=== PATIENT | male | born 1975 | race Caucasian/White ===

== ENCOUNTER 2020-05-10 14:17 | Emergency (ER) | payer SELFPAY ==
[~2020-05-10] VITALS: Ht 172.7 cm; Wt 79.5 kg
[2020-05-10 14:21] VITALS: BP 154/72
--- NOTE | 2020-05-10 14:42 | ED Upper Extremity ---
General Chief Complaint: Upper Extremity Stated Complaint: RIGHT SHOULDER PAIN History of Present Illness Date Seen by Provider: May 10, 2020 Time Seen by Provider: 14:33 Initial Comments 44-year-old male presents with right shoulder pain for the past 3 weeks, gradually getting worse. Has noticed a lump on her shoulder that is moderately tender to touch. Has been having some difficulty lifting and grasping due to the pain and occasionally has dropped things. 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 Denies known injury or fall prior to onset. Denies any neck pain or extremity paresthesia or weakness. Allergies and Home Medications Allergies Coded Allergies: Penicillins (Verified Allergy, Unknown, 05/10/20) Home Medications Ibuprofen 800 Mg Tablet, 800 MG PO Q8H PRN for PAIN Prescribed by: JOLEEN BACA on 05/10/20 1507 Patient Home Medication List Home Medication List Reviewed: Yes Review of Systems Constitutional: no symptoms reported; No fever, No malaise, No weakness EENTM: no symptoms reported Respiratory: No cough, No short of breath Cardiovascular: No chest pain, No edema, No palpitations, No syncope Gastrointestinal: No abdominal pain, No nausea, No vomiting Musculoskeletal: No back pain; joint pain (R shoulder), joint swelling; No neck pain Skin: No change in color, No lesions, No lumps, No rash Psychiatric/Neurological: Denies Numbness, Denies Paresthesia, Denies Tremors, Denies Weakness Past Vkpmngy-Mlvuic-Jjcmkp Hx Past Med/Social Hx: Reviewed Nursing Past Med/Soc Hx Patient Social History Alcohol Use: Denies Use Smoking Status: Current Everyday Smoker 2nd Hand Smoke Exposure: No Recent Hopitalizations: No Seasonal Allergies Seasonal Allergies: No Past Medical History Surgeries: Yes (Multiple orthopedic surgeries on bilater lower extremities) Orthopedic Respiratory: No Cardiac: No Neurological: No Genitourinary: No Gastrointestinal: No Musculoskeletal: No Endocrine: No HEENT: No Cancer: No Psychosocial: No Blood Disorders: No Physical Exam Vital Signs Vital Signs - First Documented 05/10/20 14:21 Temp 36.8 Pulse 98 Resp 16 B/P (MAP) 154/72 (99) Pulse Ox 98 O2 Delivery Room Air Capillary Refill : Height, Weight, BMI Height: '" Weight: lbs. oz. kg; BMI Method: General Appearance: WD/WN, no apparent distress Neck: non-tender, full range of motion, supple, normal inspection; No tender lateral, No tender midline Back: normal inspection, no CVA tenderness, no vertebral tenderness Shoulder: normal ROM (but uncomfortable), asymmetry (AC prominent on R compared to left); No deformity, No ecchymosis; pain, soft tissue tenderness, swelling (AC joint superiorly) Neurologic/Tendon: normal sensation, normal motor functions Progress/Results/Core Measures Results/Orders My Orders Orders - JOLEEN BACA DO Acromio-Clavicular Joints (05/10/20 14:35) Vital Signs/I&O 05/10/20 14:21 Temp 36.8 Pulse 98 Resp 16 B/P (MAP) 154/72 (99) Pulse Ox 98 O2 Delivery Room Air Diagnostic Imaging Diagonstic Imaging: Xray Comments normal appearing AC joints with and without weights. No evidence of separation. + STS Right AC joint apparent. Reviewed: Reviewed by Me Departure Impression Primary Impression: Strain of AC joint Qualified Codes: S46.911A - Strain of unspecified muscle, fascia and tendon at shoulder and upper arm level, right arm, initial encounter Disposition: HOME, SELF-CARE Condition: Stable Departure-Patient Inst. Decision time for Depature: 15:08 Referrals: NO,LOCAL PHYSICIAN (PCP) Primary Care Physician DENNY TRUONG MD Patient Instructions: How to Use a Shoulder Sling, Shoulder Sprain (DC) Add. Discharge Instructions: You have an AC-joint (Acromial-clavicular) strain. There is no evidence of a tear at this point....however, you should protect it and allow time to heal before returning to your full activities. see Dr Truong in 2 weeks for any further questions or concerns All discharge instructions reviewed with patient and/or family. Voiced understanding. Scripts Ibuprofen (Ibuprofen) 800 Mg Tablet 800 MG PO Q8H PRN for PAIN, #30 TAB 0 Refills Prov: JOLEEN BACA DO 05/10/20 JOLEEN BACA DO May 10, 2020 14:42
[2020-05-10] MEDS ORDERED: IBUP-1780 PO (15:07)
--- NOTE | 2020-05-10 15:47 | Diagnostic Imaging Report ---
INDICATION: Right shoulder pain. COMPARISON: None FINDINGS: Multiple radiographic views of the bilateral clavicles were obtained with and without weight loading. AC joints are symmetric and maintained both with and without weight loading. Clavicles are intact. There is no evidence of acute fracture. No unexpected radiopaque foreign bodies are seen. Included portions of the lungs are clear. IMPRESSION: 1. Unremarkable radiographic exam of the clavicles and AC joints. Dictated by: Dictated on workstation # [id number]
== END 2020-05-10 15:10 | disposition home or self-care (01) ==
LOC: ER FS 14:20
DX: S46.911A Strain of unspecified muscle, fascia and tendon at shoulder and upper arm level, right arm, initial encounter (principal); F17.210 Nicotine dependence, cigarettes, uncomplicated; Z88.0 Allergy status to penicillin; X58.XXXA Exposure to other specified factors, initial encounter
CPT/HCPCS: 73050; 99283; A4565

== ENCOUNTER 2020-06-21 17:58 | Emergency (ER) | payer SELFPAY ==
[~2020-06-21] VITALS: Ht 170.1 cm; Wt 75.8 kg
[~2020-06-21 17:58] MED LIST: IBUP-1780 PO
[2020-06-21] MEDS ORDERED: LIDOCAINE 1% INJ 20 ML 20 ML VIAL ONE (18:23)
[2020-06-21] MEDS ORDERED: LIDOCAINE 1% INJ 20 ML 20 ML VIAL INJ ONE (18:30)
[2020-06-21 19:05] VITALS: BP 149/85
--- NOTE | 2020-06-21 19:09 | ED Upper Extremity ---
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 Injury occurred just prior to ED arrival. Patient has a 6 cm deep full-thickness laceration with exposed fat through this region. Wound is bleeding and grossly contaminated. There is no bony tenderness deformity or vessel injury. Tetanus is up-to-date. Onset: just prior to arrival Pain/Injury Location: left wrist Method of Injury: incised Modifying Factors: Improves With Other Allergies and Home Medications Allergies Coded Allergies: Penicillins (Verified Allergy, Unknown, 05/10/20) Home Medications Ibuprofen 800 Mg Tablet, 800 MG PO Q8H PRN for PAIN Prescribed by: JOLEEN BACA on 05/10/20 1507 Patient Home Medication List Home Medication List Reviewed: Yes Review of Systems Constitutional: no symptoms reported EENTM: no symptoms reported Respiratory: no symptoms reported Gastrointestinal: no symptoms reported Genitourinary: no symptoms reported Musculoskeletal: see HPI Skin: see HPI Psychiatric/Neurological: No Symptoms Reported Past Kwnjsam-Tzzrxk-Mqlloz Hx Past Med/Social Hx: Reviewed Nursing Past Med/Soc Hx Patient Social History 2nd Hand Smoke Exposure: No Recent Hopitalizations: No Seasonal Allergies Seasonal Allergies: No Past Medical History Surgeries: Yes (Multiple orthopedic surgeries on bilater lower extremities) Orthopedic Respiratory: No Cardiac: No Neurological: No Genitourinary: No Gastrointestinal: No Musculoskeletal: No Endocrine: No HEENT: No Cancer: No Psychosocial: No Blood Disorders: No Physical Exam Vital Signs Capillary Refill : Height, Weight, BMI Height: '" Weight: lbs. oz. kg; 26.00 BMI Method: General Appearance: moderate distress HEENT: PERRL/EOMI Neck: full range of motion Cardiovascular: regular rate, rhythm Respiratory: lungs clear, normal breath sounds Hand: laceration (6 cm full-thickness horizontal laceration to the left hypothenar surface penetrating muscle fascia. Contaminated, bleeding controlled, no bony or vascular injury. No loss of function.), soft tissue tenderness Neurologic/Tendon: normal sensation, normal motor functions Neurologic/Psychiatric: no motor/sensory deficits Procedures/Interventions Wound Location: Upper Extremities Other Wound Location 6 cm Wound Explored: contaminated Irrigated w/ Saline (ccs): 1000 (Tap water copious) Betadine Prep?: No Anesthesia: 1% Lidocaine Volume Anesthetic (ccs): 7 Suture: Ethlion Suture Size: 5-0 Number of Sutures: 10 (Running locked) Layer Closure?: 1 Sterile Dressing Applied?: Yes Progress Patient tolerated procedure well. Tetanus up-to-date. Routine wound care instructions return precautions reviewed. Progress/Results/Core Measures Results/Orders My Orders Orders - FAVIO BARBER DO Lidocaine 1% Inj 20 Ml (Xylocaine 1% Inj (06/21/20 18:30) Lidocaine 1% Inj 20 Ml (Xylocaine 1% Inj (06/21/20 18:23) Medications Given in ED Current Medications Medications Dose Ordered Sig/Enid Route Start Time Stop Time Status Last Admin Dose Admin Lidocaine HCl 20 ml ONCE ONCE INJ 06/21/20 18:30 06/21/20 18:31 DC 06/21/20 18:45 20 ML Departure Communication (Admissions) Left hand laceration. Wound cleaned and closed. Tetanus is already up-to-date. Strict hand hygiene and wound care instructions reviewed. Return precautions reviewed. Patient verbalizes understanding agreement discharge instructions prior to departure. Sutures to be removed in 10 to 12 days Impression Primary Impression: Laceration of left hand Disposition: HOME, SELF-CARE Condition: Stable Departure-Patient Inst. Decision time for Depature: 19:11 Referrals: NO,LOCAL PHYSICIAN (PCP/Family) Primary Care Physician Patient Instructions: Laceration Repair With Stitches ED Add. Discharge Instructions: Please keep wound clean dry and covered. Take ibuprofen for pain and hydrocodone as needed for additional relief. Complete full course of antibiotics. Follow-up with your PCP in 10 to 12 days or return to the ED for suture removal. Return sooner if signs of infection. All discharge instructions reviewed with patient and/or family. Voiced understanding. Scripts Hydrocodone/Acetaminophen (Hydrocodone-Acetamin 5-325 mg) 1 Each Tablet 1 TAB PO Q4H PRN for PAIN-MODERATE (5-7), #10 TAB Prov: FAVIO BARBER DO 06/21/20 Cephalexin (Cephalexin) 500 Mg Tablet 500 MG PO TID, #21 TAB Prov: FAVIO BARBER DO 06/21/20 FAVIO BARBER DO Jun 21, 2020 19:09
[2020-06-21] MEDS ORDERED: ACHD5005 PO (19:12)
[2020-06-21] MEDS ORDERED: CEPH500T PO (19:12)
== END 2020-06-21 19:15 | disposition home or self-care (01) ==
LOC: EDUNIT# 17:58 → ER FS 17:59
DX: S61.012A Laceration without foreign body of left thumb without damage to nail, initial encounter (principal); Z88.0 Allergy status to penicillin; W31.1XXA Contact with metalworking machines, initial encounter
CPT/HCPCS: 12002

== ENCOUNTER 2020-10-31 22:00 | Emergency (ER) | payer SELFPAY ==
[~2020-10-31] VITALS: Ht 170 cm; Wt 74.8 kg
[~2020-10-31 22:00] MED LIST changes: +ACHD5005 PO; +CEPH500T PO
[2020-10-31] MEDS ORDERED: PRD20T PO (22:22)
[2020-10-31] MEDS ORDERED: TRIA15CR TP (22:22)
--- NOTE | 2020-10-31 22:23 | ED Integumentary General ---
General Stated Complaint: ALL OVER RASH Source: patient Exam Limitations: no limitations History of Present Illness Date Seen by Provider: Oct 31, 2020 Time Seen by Provider: 22:18 Initial Comments 44 old male presents with a rash that he had since the day after his second Covid shot about 1 month ago. Primarily of his lower extremities, also on his trunk of his chest and abdomen. It is itchy and dry. Did see his PCP, Dr. Chavarria who started on hydroxyzine and fluconazole. Also has a lesion in his right groin. Patient does get in his hot tub nightly. No other concerns. Allergies and Home Medications Allergies Coded Allergies: Penicillins (Verified Allergy, Unknown, 05/10/20) Home Medications Cephalexin 500 Mg Tablet, 500 MG PO TID Prescribed by: FAVIO BARBER on 06/21/201911 Hydrocodone/Acetaminophen 1 Each Tablet, 1 TAB PO Q4H PRN for PAIN-MODERATE (5- 7) Prescribed by: FAVIO BARBER on 06/21/201911 Ibuprofen 800 Mg Tablet, 800 MG PO Q8H PRN for PAIN Prescribed by: JOLEEN BACA on 05/10/20 1507 Prednisone 20 Mg Tab, 40 MG PO DAILY 3 po daily for 4 days, 2 po daily for 5 days, 1 po daily for 5 days Prescribed by: JOLEEN BACA on 10/31/202221 Triamcinolone Acetonide 15 Gm Cream..g., 30 GM TP BID Prescribed by: JOLEEN BACA on 10/31/202221 Patient Home Medication List Home Medication List Reviewed: Yes Review of Systems Review of Systems Constitutional: No fever, No malaise, No weakness EENTM: no symptoms reported Respiratory: No cough, No short of breath Cardiovascular: No chest pain, No edema, No palpitations Gastrointestinal: No abdominal pain, No nausea, No vomiting Musculoskeletal: No back pain, No joint pain Skin: see HPI, change in color, dryness, lesions; No lumps; pruritus, rash Past Wpnvyby-Phslmd-Dhelsr Hx Patient Social History Tobacco Use?: No Immunizations Up To Date Tetanus Booster (TDap): Less than 5yrs Seasonal Allergies Seasonal Allergies: No Past Medical History Surgeries: Yes (Multiple orthopedic surgeries on bilater lower extremities) Orthopedic Respiratory: No Cardiac: No Neurological: No Genitourinary: No Gastrointestinal: No Musculoskeletal: No Endocrine: No HEENT: No Cancer: No Psychosocial: No Integumentary: No Blood Disorders: No Physical Exam Vital Signs Vital Signs - First Documented 10/31/20 22:05 Temp 36.7 Pulse 105 Resp 24 B/P (MAP) 147/85 (105) Pulse Ox 96 Capillary Refill : General Appearance: WD/WN, no apparent distress HEENT: PERRL/EOMI, normal ENT inspection Neck: non-tender, supple Skin: rash (assymmetric erythematous rash w multiple appearances: 1) LLE- erythematous macules and petechia of ant leg, erythematous oval lesions in parch thigh. 2) trunk w erythematous tiny papules 3) Right inguinal oval lesion w raised erythematous scaly border and central clearing c/w tinea lesion. ) Procedures/Interventions Suture Size: 5-0 Progress/Results/Core Measures Results/Orders Vital Signs/I&O 10/31/20 22:05 Temp 36.7 Pulse 105 Resp 24 B/P (MAP) 147/85 (105) Pulse Ox 96 Progress Progress Note : Progress Note unusual "rash" present for about a month pt says started 2 days after 2nd covid shot- differing morphology of different areas. some linear lines, possibly dermatographism? trial of steroids and advised f/u if not improving Departure Impression Primary Impression: Dermatitis Additional Impression: Candidiasis of unspecified site Disposition: 01 HOME, SELF-CARE Condition: Stable Departure-Patient Inst. Decision time for Depature: 22:19 Referrals: STEFAN CHAVARRIA MD (PCP) Primary Care Physician NO,LOCAL PHYSICIAN (Family) Primary Care Physician WEST GONZALEZ MD, RICKY D DO SELF, MAXWELL MD Patient Instructions: Dermatitis, Yeast Infection (DC) Add. Discharge Instructions: Follow up with your PCP in 1 weeks or see one of the physicians above (at your request) for a second opinion. Scripts Triamcinolone Acetonide (Triamcinolone Acetonide 0.5% Cream) 15 Gm Cream..g. 30 GM TP BID for groin, #1 TUBE 2 Refills Prov: JOLEEN BACA DO 10/31/20 Prednisone (Prednisone) 20 Mg Tab 40 MG PO DAILY, #27 TAB 0 Refills 3 po daily for 4 days, 2 po daily for 5 days, 1 po daily for 5 days Prov: ROVENSTINE,JOLEEN L DO 10/31/20 JOLEEN BACA DO Oct 31, 2020 22:22
[2020-10-31 22:28] VITALS: BP 147/85
== END 2020-10-31 22:30 | disposition home or self-care (01) ==
LOC: EDUNIT# 22:00 → ER FS 22:04
DX: L30.9 Dermatitis, unspecified (principal); B37.9 Candidiasis, unspecified
CPT/HCPCS: 99281

== ENCOUNTER 2020-11-08 21:41 | Emergency (ER) | payer SELFPAY ==
[~2020-11-08] VITALS: Ht 170.1 cm; Wt 74.8 kg
[~2020-11-08 21:41] MED LIST changes: +PRD20T PO; +TRIA15CR TP
[2020-11-08] MEDS ORDERED: LORazepam 0.5 MG (ATIVAN) TABLET PO STA (22:00)
[2020-11-08 22:04] LABS: BASOPHILS % (AUTO) 0 % (0-10); EOSINOPHILS % (AUTO) 0 % (0-10); HEMATOCRIT 40 % (40-54); HEMOGLOBIN 13.8 g/dL (13.3-17.7); LYMPHOCYTES % (AUTO) 16 % (12-44); MEAN CORPUSCULAR HEMOGLOBIN 31 pg (25-34); MEAN CORPUSCULAR HGB CONC 34 g/dL (32-36); MEAN CORPUSCULAR VOLUME 90 fL (80-99); MEAN PLATELET VOLUME 9.1 fL (9.0-12.2); MONOCYTES % (AUTO) 7 % (0-12); NEUTROPHILS % (AUTO) 76 % (42-75); PLATELET COUNT 239 10^3/uL (130-400); WHITE BLOOD COUNT 10.4 10^3/uL (4.3-11.0)
[2020-11-08 22:06] LABS: LYMPHOCYTES # (AUTO) 1.7 X 10^3 (1.0-4.0); MONOCYTES # (AUTO) 0.7 X 10^3 (0.0-1.0); NEUTROPHILS # (AUTO) 7.9 X 10^3 (1.8-7.8)
--- NOTE | 2020-11-08 22:13 | ED General ---
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 Patient also states that it feels like his neck was swelling and his voice started to sound funny. Patients neck does appear swollen and he does have subcutaneous emphysema on both sides of the neck. Patient denies having any injury. 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 Symptoms began 1 hour prior to ED arrival after working on a car. Patient feels as though at the right side of his neck is bulging. Patient is a smoker states he has history of emphysema. No fever cough, sore throat. No difficulty swallowing. No other symptoms or complaints. Timing/Duration: 1 Hour Severity: Moderate Associated Systoms: Shortness of Air, Other Allergies and Home Medications Allergies Coded Allergies: Penicillins (Verified Allergy, Unknown, 05/10/20) Patient Home Medication List Home Medication List Reviewed: Yes Cephalexin (Cephalexin) 500 Mg Tablet, 500 MG PO TID Prescribed by: FAVIO BARBER on 06/21/201911 Hydrocodone/Acetaminophen (Hydrocodone-Acetamin 5-325 mg) 1 Each Tablet, 1 TAB PO Q4H PRN for PAIN-MODERATE (5-7) Prescribed by: FAVIO BARBER on 06/21/201911 Ibuprofen (Ibuprofen) 800 Mg Tablet, 800 MG PO Q8H PRN for PAIN Prescribed by: JOLEEN BACA on 05/10/20 1507 Prednisone (Prednisone) 20 Mg Tab, 40 MG PO DAILY Prescribed by: JOLEEN BACA on 10/31/202221 Triamcinolone Acetonide (Triamcinolone Acetonide 0.5% Cream) 15 Gm Cream..g., 30 GM TP BID Prescribed by: JOLEEN BACA on 10/31/202221 Review of Systems Review of Systems Constitutional: see HPI EENTM: see HPI Respiratory: see HPI Cardiovascular: see HPI Genitourinary: see HPI Musculoskeletal: see HPI Skin: see HPI Psychiatric/Neurological: See HPI Hematologic/Lymphatic: See HPI Immunological/Allergic: see HPI All Other Systems Reviewed Negative Unless Noted: Yes Past Ugswsnz-Aqtpkv-Gtxktc Hx Patient Social History Tobacco Use?: Yes Immunizations Up To Date Tetanus Booster (TDap): Less than 5yrs First/Initial COVID19 Vaccinat: July 2020 Second COVID19 Vaccination Td: August 2020 Seasonal Allergies Seasonal Allergies: No Past Medical History Surgeries: Yes (Multiple orthopedic surgeries on bilater lower extremities) Orthopedic Respiratory: No Cardiac: No Neurological: No Genitourinary: No Gastrointestinal: No Musculoskeletal: No Endocrine: No HEENT: No Cancer: No Psychosocial: No Integumentary: No Blood Disorders: No Physical Exam Vital Signs Vital Signs - First Documented 11/08/20 21:45 Temp 36.8 Pulse 108 Resp 22 B/P (MAP) 151/93 (112) Pulse Ox 98 O2 Delivery Room Air Capillary Refill : Less Than 3 Seconds Height, Weight, BMI Height: '" Weight: lbs. oz. kg; 25.00 BMI Method: General Appearance: No Apparent Distress, Anxious Eyes: Bilateral Eye Normal Inspection, Bilateral Eye PERRL, Bilateral Eye EOMI HEENT: PERRL/EOMI, Normal ENT Inspection, Pharynx Normal Neck: Full Range of Motion, Supple, Other (Bulging of lateral neck pelvis with subcutaneous emphysema.) Respiratory: Lungs Clear, Normal Breath Sounds, No Accessory Muscle Use, Other (No crepitus or subcutaneous emphysema) Cardiovascular: Regular Rate, Rhythm Gastrointestinal: Non Tender, Soft Neurologic/Psychiatric: Alert, Oriented x3 Skin: Normal Color Focused Exam Sepsis Stage: Ruled Out Procedures/Interventions Suture Size: 5-0 Progress/Results/Core Measures Suspected Sepsis SIRS Temperature: Pulse: 108 Respiratory Rate: 22 Laboratory Tests 11/08/20 21:53: White Blood Count 10.4 Blood Pressure 151 /93 Mean: 112 Laboratory Tests 11/08/20 21:53: Platelet Count 239 Results/Orders Lab Results Laboratory Tests Test 11/08/20 21:53 Range/Units White Blood Count 10.4 4.3-11.0 10^3/uL Red Blood Count 4.45 4.30-5.52 10^6/uL Hemoglobin 13.8 13.3-17.7 g/dL Hematocrit 40 40-54 % Mean Corpuscular Volume 90 80-99 fL Mean Corpuscular Hemoglobin 31 25-34 pg Mean Corpuscular Hemoglobin Concent 34 32-36 g/dL Red Cell Distribution Width 14.1 10.0-14.5 % Platelet Count 239 130-400 10^3/uL Mean Platelet Volume 9.1 9.0-12.2 fL Immature Granulocyte % (Auto) 0 % Neutrophils (%) (Auto) 76 H 42-75 % Lymphocytes (%) (Auto) 16 12-44 % Monocytes (%) (Auto) 7 0-12 % Eosinophils (%) (Auto) 0 0-10 % Basophils (%) (Auto) 0 0-10 % Neutrophils # (Auto) 7.9 H 1.8-7.8 X 10^3 Lymphocytes # (Auto) 1.7 1.0-4.0 X 10^3 Monocytes # (Auto) 0.7 0.0-1.0 X 10^3 Eosinophils # (Auto) 0.0 0.0-0.3 10^3/uL Basophils # (Auto) 0.0 0.0-0.1 10^3/uL Immature Granulocyte # (Auto) 0.0 0.0-0.1 10^3/uL My Orders Orders - FAVIO BARBER DO Cbc With Automated Diff (11/08/20 21:47) Comprehensive Metabolic Panel (11/08/20 21:47) Ekg-Prn For Chest Pain Or Rhyt (11/08/20 21:47) Chest 1 View Ap/Pa Only (11/08/20 21:47) Lorazepam Tablet (Ativan Tablet) (11/08/20 22:00) Ekg Tracing (11/08/20 22:00) Hydrocodone/Apap 5/325 Tablet (Lortab 5 (11/08/20 22:15) Vital Signs/I&O 11/08/20 21:45 Temp 36.8 Pulse 108 Resp 22 B/P (MAP) 151/93 (112) Pulse Ox 98 O2 Delivery Room Air Capillary Refill : Less Than 3 Seconds Blood Pressure Mean: 112 Departure Communication (Admissions) Chest x-ray: Pneumomediastinum with subcutaneous emphysema tracking into the neck Patient was spontaneous pneumomediastinum without evidence of pneumothorax. Anxiety and discomfort addressed. Recommendation are supportive care watchful waiting and PCP follow-up. Explicit instructions to avoid heavy lifting, strenuous physical activity and to return to the ED should the symptoms worsen. Patient verbalizes understanding agreement discharge instructions prior to departure. Impression Primary Impression: Pneumomediastinum Disposition: HOME, SELF-CARE Condition: Stable Departure-Patient Inst. Decision time for Depature: 22:13 Referrals: STEFAN SERRANO MD (PCP/Family) Primary Care Physician Add. Discharge Instructions: You were evaluated in the emergency department for chest pain, shortness of breath and neck swelling. This was caused by an air leak your lungs surrounding your heart and central blood vessels. The area is leaking into the soft tissues of your neck. Both lungs are expanded and are not collapse. They airleak will naturally be reabsorbed over time. Please avoid strenuous physical activity, lifting or exertion as this will prolong symptoms and delay healing. Take Tylenol for pain and Ativan as needed for anxiety. Return to the ED if new or worsening symptoms. All discharge instructions reviewed with patient and/or family. Voiced understanding. Scripts Lorazepam (Ativan) 2 Mg Tablet 2 MG PO Q8H for 7 Days, #12 TAB Prov: FAVIO BARBER DO 11/08/20 FAVIO BARBER DO Nov 08, 2020 22:13
--- NOTE | 2020-11-08 22:14 | Diagnostic Imaging Report ---
Chest 1 view AP/PA only. Indication: Shortness of air. Comparison: None available. Findings: Pneumomediastinum is present with soft tissue gas dissecting into the neck. No pneumothorax is appreciated. Lungs are clear. Normal heart size. Impression: 1. Pneumomediastinum with soft tissue gas in the neck. 2. No pneumothorax. Dictated by: Dictated on workstation # [id number]
[2020-11-08] MEDS ORDERED: HYDROcodone/APAP 5 MG/325 MG (LORTAB) TAB PO ONE (22:15)
[2020-11-08] MEDS ORDERED: LORA-407 PO ×2 (22:16→22:23)
[2020-11-08 22:18] LABS: POTASSIUM 4.3 MMOL/L (3.6-5.0)
[2020-11-08 22:19] LABS: ALBUMIN 4.5 GM/DL (3.2-4.5); BILIRUBIN,TOTAL 0.4 MG/DL (0.1-1.0); CALCIUM 9.3 MG/DL (8.5-10.1); CREATININE SERUM 1.01 MG/DL (0.60-1.30); TOTAL PROTEIN 7.5 GM/DL (6.4-8.2)
[2020-11-08 22:28] VITALS: BP 151/93
== END 2020-11-08 22:28 | disposition home or self-care (01) ==
LOC: EDUNIT# 21:41 → ER FS 21:43
DX: J98.2 Interstitial emphysema (principal); F17.290 Nicotine dependence, other tobacco product, uncomplicated; Z79.52 Long term (current) use of systemic steroids
CPT/HCPCS: 36415; 71045; 80053; 85025; 93005

== ENCOUNTER 2021-03-09 20:46 | Emergency (ER) | payer SELFPAY ==
[~2021-03-09] VITALS: Ht 170 cm; Wt 74.1 kg
[~2021-03-09 20:46] MED LIST changes: +LORA-407 PO
[2021-03-09 21:13] VITALS: BP 183/107
--- NOTE | 2021-03-09 21:17 | ED Integumentary General ---
General Chief Complaint: Skin/Wound Problems Stated Complaint: RASH ON LEGS AND SIDE Source: patient, old records History of Present Illness Date Seen by Provider: Mar 09, 2021 Time Seen by Provider: 20:49 Initial Comments 45-year-old male presenting with complaints of having worms in his stool and rash on his legs and sides. He states the has had diarrhea for over a month and he has seen worms in his diarrhea stool. He has also been having a recurrent rash to his legs and sides of his trunk. This seems to be worse after taking a hot shower. It gets erythematous and itchy. He was seen for similar rash in October after having the Covid vaccination. At that time it was thought to be ringworm or fungal infection in addition to a contact dermatitis. He was treated with steroids and a topical antifungal cream. He states that it did improve after he use those but it has popped up again in the last week or 2. He made an appointment in the next week or 2 to be seen in the clinic but because it was worse after his shower tonight he came to the emergency department. He is very anxious and fidgety about his symptoms and worried about what was causing the rash as well as wanting treatment for the worms he saw in his stool. He reports the diarrhea stool is primarily first thing in the morning and he has 2-3 loose diarrhea stools a day. He states that he does not feel like he can provide a stool specimen here. He denies fever, chills, nausea, vomiting, abdominal pain. Timing/Duration: other (Diarrhea has been off and on over the last month. The rash has been off and on over the last 2 weeks) Severity: moderate Location: torso (Sides of his torso), extremities (Lower extremities) Possible Cause: no cause identified Modifying Factors: worse with scratching, worse with other (Heat and hot showers make it worse) Associated Symptoms: blisters, change in skin texture; No fever, No flushing, No headache; hives; No jaundice, No malaise, No nasal congestion, No numbness, No pallor, No paresthesia, No petechiae; rash; No sore throat, No swelling/mass/lumps, No tingling Allergies and Home Medications Allergies Coded Allergies: Penicillins (Verified Allergy, Unknown, 05/10/20) Patient Home Medication List Home Medication List Reviewed: Yes Cephalexin (Cephalexin) 500 Mg Tablet, 500 MG PO TID Prescribed by: FAVIO BARBER on 06/21/201911 Hydrocodone/Acetaminophen (Hydrocodone-Acetamin 5-325 mg) 1 Each Tablet, 1 TAB PO Q4H PRN for PAIN-MODERATE (5-7) Prescribed by: FAVIO BARBER on 06/21/201911 Ibuprofen (Ibuprofen) 800 Mg Tablet, 800 MG PO Q8H PRN for PAIN Prescribed by: JOLEEN BACA on 05/10/20 1507 Lorazepam (Ativan) 2 Mg Tablet, 2 MG PO Q8H Prescribed by: FAVIO BARBER on 11/08/20 221 Lorazepam (Ativan) 2 Mg Tablet, 2 MG PO Q8H Prescribed by: FAVIO BARBER on 11/08/202223 Prednisone (Prednisone) 20 Mg Tab, 40 MG PO DAILY Prescribed by: MELINA PHILLIPS on 03/09/212117 Triamcinolone Acetonide (Triamcinolone Acetonide 0.5% Cream) 15 Gm Cream..g., 0.5 GM TP BID Prescribed by: MELINA PHILLIPS on 03/09/212117 Review of Systems Review of Systems Constitutional: No chills, No fever EENTM: no symptoms reported Respiratory: no symptoms reported Cardiovascular: no symptoms reported Gastrointestinal: see HPI Genitourinary: no symptoms reported Musculoskeletal: no symptoms reported Skin: see HPI Psychiatric/Neurological: Anxiety Past Njdhghf-Omuuun-Jgfcqa Hx Immunizations Up To Date Tetanus Booster (TDap): Less than 5yrs First/Initial COVID19 Vaccinat: July 2020 Second COVID19 Vaccination Td: August 2020 Seasonal Allergies Seasonal Allergies: No Past Medical History Surgeries: Yes (Multiple orthopedic surgeries on bilater lower extremities) Orthopedic Respiratory: No Cardiac: No Neurological: No Genitourinary: No Gastrointestinal: No Musculoskeletal: No Endocrine: No HEENT: No Cancer: No Psychosocial: No Integumentary: No Blood Disorders: No Physical Exam Vital Signs Vital Signs - First Documented 03/09/21 21:13 Temp 37.0 Pulse 119 Resp 16 B/P (MAP) 183/107 (132) Pulse Ox 97 O2 Delivery Room Air Capillary Refill : General Appearance: other (Anxious and very twitchy) Cardiovascular: normal peripheral pulses Extremities: normal range of motion, normal capillary refill Neurologic/Psychiatric: alert, oriented x 3 Skin: warm/dry, rash (Erythematous rash to bilateral lower legs and to bilateral sides of torso) Skin Problem Location: torso (Bilateral sides of torso), lower extremities Skin Problem Character: erythema, rash, urticarial (Some of the areas especially on his torso appear to be more urticarial in nature.), vesicular (There are some vesicular components to the rash on his legs otherwise is mostly maculopapular) Procedures/Interventions Suture Size: 5-0 Progress/Results/Core Measures Results/Orders My Orders Orders - MELINA PHILLIPS MD Dexamethasone Injection (Decadron Inje (03/09/21 21:10) Vital Signs/I&O 03/09/21 21:13 Temp 37.0 Pulse 119 Resp 16 B/P (MAP) 183/107 (132) Pulse Ox 97 O2 Delivery Room Air Progress Progress Note : Progress Note Advised patient that this did not appear consistent with ringworm since it was so widespread. He states he has been under extra stress recently. He also is very worried and concerned about having seen worms in his diarrhea stool over the last month and decided tonight that it needed to be treated emergently. He has an appointment with the clinic but is not for another week or 2. He is unable to provide a specimen tonight for testing on the stool. Counseled patient that I would review the chart to see what medicines he got when he presented with the same sort of rash in October. Since that treatment has helped I will represcribe it. As far as the worms he was seen in his stool and so we could obtain a stool specimen for testing I would not know what medicine to prescribe for him. Will send supplies with patient and an outpatient order to be able to bring back a specimen for testing. Counseled to follow-up with his primary provider about the recurrent rash Departure Impression Primary Impression: Dermatitis Additional Impression: Diarrhea of presumed infectious origin Disposition: HOME, SELF-CARE Condition: Stable Departure-Patient Inst. Decision time for Depature: 21:13 Referrals: STEFAN SERRANO MD (PCP/Family) Primary Care Physician Patient Instructions: Diarrhea, Adult ED, Dermatitis Add. Discharge Instructions: Try using the steroid and anti-fungal cream that had helped in October for your rash. Before we can know what medicine to prescribe for your stool the lab will need to run testing on it. Collect a specimen at home and bring it back to the lab so it can be run for testing. The results will be sent to your provider in the clinic so they will know what medicine to prescribe for you. Keep your appointment for follow up with clinic so that you can be followed up for the rash and your diarrhea All discharge instructions reviewed with patient and/or family. Voiced understanding. Scripts Triamcinolone Acetonide (Triamcinolone Acetonide 0.5% Cream) 15 Gm Cream..g. 0.5 GM TP BID for groin, #1 TUBE 2 Refills Apply thin layer of cream to rash twice a day for next 10 days. Prov: MELINA PHILLIPS MD 03/09/21 Prednisone (Prednisone) 20 Mg Tab 40 MG PO DAILY, #27 TAB 0 Refills 3 po daily for 4 days, 2 po daily for 5 days, 1 po daily for 5 days Prov: MELINA PHILLIPS MD 03/09/21 MELINA PHILLIPS MD Mar 09, 2021 21:17
[2021-03-09] MEDS ORDERED: PRD20T PO (21:18)
[2021-03-09] MEDS ORDERED: TRIA15CR TP (21:18)
== END 2021-03-09 21:34 | disposition home or self-care (01) ==
LOC: EDUNIT# 20:46 → ER FS 20:49
DX: L30.9 Dermatitis, unspecified (principal); A09 Infectious gastroenteritis and colitis, unspecified
CPT/HCPCS: 99284

== ENCOUNTER → 2021-03-10 | Outpatient (CLI) | payer SELFPAY | LOC: LAB FS 11:26 | PROVIDERS: ATTEND Family Medicine | DX: J98.2 Interstitial emphysema (principal); L30.9 Dermatitis, unspecified; R19.7 Diarrhea, unspecified; M25.511 Pain in right shoulder | CPT/HCPCS: 87015; 87045; 87046; 87328; 87329; 87899 ==

== ENCOUNTER 2022-12-13 21:40 | Emergency (ER) | payer SELFPAY ==
[~2022-12-13] VITALS: Ht 170.2 cm; Wt 67.4 kg
[2022-12-13 21:46] VITALS: BP 147/96
[2022-12-13] MEDS ORDERED: FLUORESCEIN 1 MG OPHTHALMIC STRIPS ONE (21:47)
[2022-12-13] MEDS ORDERED: TETRACAINE 0.5% OPHTH SOLN 4 ML BTL (SINGLE DOSE ONLY) ONE (21:48)
[2022-12-13] MEDS ORDERED: ACHD5005 PO (22:05)
[2022-12-13] MEDS ORDERED: OFLO5DRO8 OD (22:06)
--- NOTE | 2022-12-13 22:06 | ED EENT ---
History of Present Illness General Chief Complaint: Eye Problems Stated Complaint: RIGHT EYE INJ Nursing Triage Note: Pt presents with c/o R eye pain. He states he was grinding metal yesterday and felt something fly up under his glasses into his eye. Pt states hes flushed it multiple times, used drops, and feels it is getting worse. Source: patient Exam Limitations: no limitations History of Present Illness Date Seen by Provider: Dec 13, 2022 Time Seen by Provider: 21:49 Initial Comments 47-year-old male presents for right eye pain. He was grinding metal yesterday and thinks he may have gotten something in it. It hurt throughout the night and has been worsening through the day today. He does not wear contacts. All other systems reviewed and negative except documented per HPI. Voice recognition software was used to help create this chart Allergies and Home Medications Allergies Coded Allergies: Penicillins (Verified Allergy, Unknown, 05/10/20) Patient Home Medication List Home Medication List Reviewed: Yes Cephalexin (Cephalexin) 500 Mg Tablet, 500 MG PO TID Prescribed by: FAVIO BARBER on 06/21/201911 Hydrocodone/Acetaminophen (Hydrocodone-Acetamin 5-325 mg) 1 Each Tablet, 1 TAB PO Q4H PRN for PAIN-MODERATE (5-7) Prescribed by: FAVIO BARBER on 06/21/201911 Hydrocodone/Acetaminophen (Hydrocodone-Acetamin 5-325 mg) 5 Mg-325 Mg Tablet, 1 TAB PO Q4H PRN for PAIN-MODERATE (5-7) Prescribed by: LEW VALLADARES MD on 12/13/222204 Ibuprofen (Ibuprofen) 800 Mg Tablet, 800 MG PO Q8H PRN for PAIN Prescribed by: JOLEEN BACA on 05/10/20 1507 Lorazepam (Ativan) 2 Mg Tablet, 2 MG PO Q8H Prescribed by: FAVIO BARBER on 11/08/20 221 Lorazepam (Ativan) 2 Mg Tablet, 2 MG PO Q8H Prescribed by: FAVIO BARBER on 11/08/202223 Ofloxacin (Ofloxacin) 0.3 % Drops, 2 DROPS OD TID Prescribed by: LEW VALLADARES MD on 12/13/222205 Prednisone (Prednisone) 20 Mg Tab, 40 MG PO DAILY Prescribed by: MELINA PHILLIPS on 03/09/212117 Triamcinolone Acetonide (Triamcinolone Acetonide 0.5% Cream) 15 Gm Cream..g., 0.5 GM TP BID Prescribed by: MELINA PHILLIPS on 03/09/212117 Review of Systems Review of Systems Constitutional: see HPI Past Ieetuxx-Ngoukf-Yxwhsw Hx Patient Social History Tobacco Use?: Yes Use of E-Cig and/or Vaping dev: No Substance use?: No Alcohol Use?: No Immunizations Up To Date Tetanus Booster (TDap): Less than 5yrs First/Initial COVID19 Vaccinat: July 2020 Second COVID19 Vaccination Td: August 2020 Seasonal Allergies Seasonal Allergies: No Past Medical History Surgeries: Yes (Multiple orthopedic surgeries on bilater lower extremities) Orthopedic Respiratory: No Cardiac: No Neurological: No Genitourinary: No Gastrointestinal: No Musculoskeletal: No Endocrine: No HEENT: No Cancer: No Psychosocial: No Integumentary: No Blood Disorders: No Physical Exam Vital Signs Vital Signs - First Documented 12/13/22 21:46 Temp 37.3 Pulse 97 Resp 18 B/P (MAP) 147/96 (113) Height, Weight, BMI Height: '" Weight: lbs. oz. kg; 23.00 BMI Method: General Appearance: WD/WN, no apparent distress Eyes: right eye other (There is a clyde embedded foreign object just medial to the iris on the right side. There is a corneal abrasion in this area.); left eye normal inspection, left eye PERRL, left eye EOMI Skin: normal color, warm/dry Procedures/Interventions Suture Size: 5-0 Progress/Results/Core Measures Results/Orders My Orders Orders - LEW VALLADARES DO Fluorescein Ophthalmic Strips (Fluoresce (12/13/22 21:47) Tetracaine 0.5% Ophth Henny Sdv (Tetracai (12/13/22 21:48) Rx-Hydrocodone/Apap 5-325 Mg (Rx-Vicodin (12/13/22 22:15) Medications Given in ED Current Medications Medications Dose Ordered Sig/[place] Route Start Time Stop Time Status Last Admin Dose Admin Fluorescein Sodium 1 mg STK-MED ONCE .ROUTE 12/13/22 21:47 12/13/22 21:50 DC 12/13/22 21:56 1 MG Tetracaine HCl 4 ml STK-MED ONCE .ROUTE 12/13/22 21:48 12/13/22 21:50 DC 12/13/22 21:56 4 ML Vital Signs/I&O 12/13/22 21:46 Temp 37.3 Pulse 97 Resp 18 B/P (MAP) 147/96 (113) Blood Pressure Mean: 113 Departure Communication (Admissions) Fluorescein staining shows corneal abrasion to the medial portion of the iris at the location of the ocular foreign body. Ocular foreign body removed with a 23- gauge needle without complications. He is given p.o. hydrocodone to go home with and prescribed hydrocodone to his pharmacy as well as ofloxacin eyedrops. Advised not to wear contacts. Discharged in stable condition. Impression Primary Impression: Intraocular foreign body Qualified Codes: S05.51XA - Penetrating wound with foreign body of right eyeball, initial encounter Additional Impression: Corneal abrasion, right Qualified Codes: S05.01XA - Injury of conjunctiva and corneal abrasion without foreign body, right eye, initial encounter Disposition: HOME, SELF-CARE Condition: Stable Departure-Patient Inst. Referrals: MARIS MCKOY APRN (PCP/Family) Primary Care Physician Patient Instructions: Foreign Body in Eye (DC), Corneal Abrasion ED Add. Discharge Instructions: Take pain medication as prescribed as needed. Do not drive or make important decisions while taking this as it may make you drowsy. Your pain should improve in the next 48 hours. Use the antibiotic eyedrops as prescribed. All discharge instructions reviewed with patient and/or family. Voiced understanding. Scripts Ofloxacin (Ofloxacin) 0.3 % Drops 2 DROPS OD TID for 5 Days, #1 EACH Prov: LEW VALLADARES DO 12/13/22 Hydrocodone/Acetaminophen (Hydrocodone-Acetamin 5-325 mg) 5 Mg-325 Mg Tablet 1 TAB PO Q4H PRN for PAIN-MODERATE (5-7) for 2 Days, #8 TAB Prov: LEW VALLADARES DO 12/13/22 LEW VALLADARES DO Dec 13, 2022 22:06
== END 2022-12-13 22:21 | disposition home or self-care (01) ==
LOC: EDUNIT# 21:40 → ER FS 21:42
DX: T15.01XA Foreign body in cornea, right eye, initial encounter (principal); Z88.0 Allergy status to penicillin
CPT/HCPCS: 99283